=== PATIENT | female | born 1980 | race Caucasian/White ===

== ENCOUNTER 2017-01-12 11:54 | Emergency (ER) | payer OTHER ==
[2017-01-12 12:02] VITALS: BP 114/63; BMI 28.8
--- NOTE | 2017-01-12 13:10 | DR.GENAD ---
HPI - PCP Primary Care Physician: SKINNY WALDROP - HPI Comment HPI Comment: PATIENT IS DIZZY. SYMTOMS STARTED SEVERAL MONTHS AGO BUT IS GETTING WORSE. NO FEVER. DENIES CALF PAINOR TENDERNESS. - Complaint/Symptoms Chief Complaint Doctors Comments: CHEST TIGHTNESS, LOW BACK PAIN, SOB THAT IS GETTING WORSE. Chief Complaint:: PT C/O TINGLING TO HER EXT'S, SOB, DIZZY FOR 6-8 MONTHS ,, PT KOREY IS MIGHT BE SIATICA AND SHE IS SEEING AN MD FOR THIS AND SHE WANTS TO MAKE SURE IT'S NOT HER HEART". Self Treatment fo Chief Complaint: PT C/O CHEST TIGHTNESS.. - Nurses notes reviewed Nurses Notes Review: Yes - Source History Provided: Patient - Mode of Arrival Mode of Arrival: Ambulatory - Timing Onset of Chief Complaint: 01/12/17 Came on: Suddenly - Duration Duration: Constant Duration: Days - Severity Severity: Moderate PMH - PMH Past Medical History: No Past Surgical History: Yes Past Surgical History Comment: 2 C-SECTIONS - Family History History of Family Medical Conditions: Yes Family Medical History: Diabetes Mellitus Family Medical History Comment: HTN, CHOLESTEROL, - Social History Does patient currently use any type of tobacco product: No Have you used tobacco products in the last 12 months: No Type of Tobacco Use: None Does any household member use tobacco: No Alcohol Use: Rarely Do you use any recreational Drugs:: No Lives With: Family Lives Where: Home - infectious screening In the last 2 months have you had wt loss of >10#?: YES Have you had fever, night sweats or hemotysis?: No Have you traveled outside the country in the last 6 months?: No Isolation: Standard ROS - Review of Systems Constitutional: Weakness, Fatigue. negative: Chills, Fever Eyes: No Symptoms Reported. negative: Eye Pain, Blurred Vision, Discharge, Photophobia ENTM: No Symptoms Reported. negative: Ear Pain, Nose Discharge, Nose Congestion , Throat Pain Respiratoy: Non-Productive Cough, Short of Breath. negative: Productive Cough, Wheezing, Hemoptysis Cardiovascular: Chest Pain (TIGHTNESS). negative: Edema, Palpitations, Syncope Gastrointestinal/Abdominal: No Symptoms Reported. negative: Abdominal Pain, Diarrhea, Nausea, Vomiting Genitourinary: No Symptoms Reported. negative: Dysuria, Frequency, Hematuria Neurological: Headache, Tingling (EXTREMITIES.), Weakness, Dizziness Musculoskeletal: Muscle Pain Integumentary: No Symptoms Reported Hematologic/Lymphatic: No Symptoms Reported Endocrine: No Symptoms Reported All Other Systems: Reviewed and Negative PE - Vital Signs Vitals: Temperature 97.7 F Pulse Rate 83 Respiratory Rate 18 Blood Pressure 114/63 O2 Sat by Pulse Oximetry 100 - General Limitations: No Limitations General Appearance: Alert - Head Head Exam: Atraumatic - Eyes Eye exam: Normal Appearance - ENT ENT Exam: Normal External Ear Exam External Ear Exam: Normal External Inspection TM/Canal Exam: Bilateral Normal Nose Exam: Normal Nose Exam Mouth Exam: Normal Inspection Throat Exam: Normal Inspection - Neck Neck Exam: Trachea Midline - Chest Chest Inspection: Symmetric Chest Wall Rise - Respiratory Respiratory Exam: Normal Lung Sounds Bilat Respiratory Exam: Bilateral Rhonchi, Lower Rhonchi - Cardiovascular Cardiovascular Exam: Regular Rate, Normal Rhythm, Normal Heart Sounds - Abdominal Exam Abdominal Exam: Normal Bowel Sounds, Soft. negative: Tenderness - Extremities Extremities Exam: Normal Inspection - Back Back Exam: Paraspinal Tenderness - Neurologic Neurological Exam: Alert, Oriented X3 - Psychiatric Psychiatric Exam: Normal Affect, Normal Mood - Skin Skin Exam: Dry MDM - Additional Information Additional Information Obtained From: Family - Differential Diagnosis Differential Diagnosis: CHEST PAIN, PULMONARY EMBOLISM, DIZZINESS Course - Treatment Treatment: SEE ORDERS. - Education/Counseling Education/Counseling: Patient Educated On: Diagnosis, Needs for Follow Up ROR - Labs Reviewed Laboratory Results Reviewed?: Yes Result Diagrams: 01/12/17 13:26 01/12/17 13:26 Laboratory: WBC 10.9 X10^3/uL (3.6-10.0) H 01/12/17 13:26 RBC 5.06 X10^6/uL (3.5-5.4) 01/12/17 13:26 Hgb 12.5 g/dL (12.0-16.0) 01/12/17 13:26 Hct 37.9 % (36.0-47.0) 01/12/17 13:26 MCV 74.9 fL (80.0-100.0) L 01/12/17 13:26 MCH 24.8 pg (27.0-34.0) L 01/12/17 13:26 MCHC 33.1 g/dL (33.0-35.0) 01/12/17 13:26 RDW 17.1 % (11.6-16.5) H 01/12/17 13:26 Plt Count 259 X10^3/uL (150.0-450.0) 01/12/17 13:26 Plt Count Comment Adequate (ADEQUATE) 01/12/17 13:26 MPV 8.3 fL (7.4-11.0) 01/12/17 13:26 Neut % 91.0 % (42.0-75.0) H 01/12/17 13:26 Lymph % 6.0 % (21.0-51.0) L 01/12/17 13:26 [place] % 2.1 % (0.0-13.0) 01/12/17 13:26 Eos % 0.1 % (0.9-2.9) L 01/12/17 13:26 Baso % 0.8 % (0.2-1.0) 01/12/17 13:26 Neut # 9.9 x10^3/uL (2.2-4.8) H 01/12/17 13:26 Lymph # 0.7 X10^3/uL (1.3-2.9) L 01/12/17 13:26 [place] # 0.2 x10^3/uL (0.3-0.8) L 01/12/17 13:26 Eos # 0.0 x10^3/uL (0.0-0.2) 01/12/17 13:26 Baso # 0.1 X10^3/uL (0.0-0.1) 01/12/17 13:26 Absolute Nucleated RBC 0.0 /100WBC 01/12/17 13:26 Total Counted 100 01/12/17 13:26 Neutrophils % (Manual) 85 % (39-76) H 01/12/17 13:26 Band Neutrophils % 2 % (0-10) 01/12/17 13:26 Lymphocytes % (Manual) 11 % (13-43) L 01/12/17 13:26 Monocytes % (Manual) 2 % (4-9) L 01/12/17 13:26 Plt Morphology Comment Normal (NORMAL) 01/12/17 13:26 RBC Morphology Abnormal (NORMAL) A 01/12/17 13:26 Hypochromasia Slight A 01/12/17 13:26 Anisocytosis Slight A 01/12/17 13:26 Microcytosis Slight A 01/12/17 13:26 D-Dimer < 100 ng/mL (0-400) 01/12/17 13:26 Sodium 138 mmol/L (136-145) 01/12/17 13:26 Corrected Sodium TNP 01/12/17 13:26 Potassium 3.7 mmol/L (3.5-5.1) 01/12/17 13:26 Chloride 104 mmol/L (98-107) 01/12/17 13:26 Carbon Dioxide 27.7 mmol/L (21-32) 01/12/17 13:26 BUN 10 mg/dL (7-18) 01/12/17 13:26 Creatinine 0.86 mg/dL (0.55-1.02) 01/12/17 13:26 Est GFR (MDRD) Af Amer > 60 (>60) 01/12/17 13:26 Est GFR (MDRD) Non-Af > 60 (>60) 01/12/17 13:26 Glucose 106 mg/dL (65-99) H 01/12/17 13:26 Calcium 8.9 mg/dL (8.5-10.1) 01/12/17 13:26 Corrected Calcium TNP 01/12/17 13:26 Total Bilirubin 1.10 mg/dL (0.2-1.0) H 01/12/17 13:26 AST 14 Units/L (15-37) L 01/12/17 13:26 ALT 19 Units/L (12-78) 01/12/17 13:26 Alkaline Phosphatase 56 Units/L (46-116) 01/12/17 13:26 Creatine Kinase 65 Units/L (26-192) 01/12/17 13:26 CK-MB (CK-2) < 1.0 ng/mL (0-4.0) 01/12/17 13:26 CK/CKMB % Calc 1.5 % (<4) 01/12/17 13:26 Troponin I < 0.02 ng/mL (0-1.5) 01/12/17 13:26 Total Protein 7.7 g/dL (6.4-8.2) 01/12/17 13:26 Albumin 3.9 g/dL (3.4-5.0) 01/12/17 13:26 Globulin 3.8 g/dL (2.5-4.5) 01/12/17 13:26 Albumin/Globulin Ratio 1.0 Ratio (1.1-2.1) L 01/12/17 13:26 Specimen Type Clean catch urine 01/12/17 14:01 Urine Color Yellow (YELLOW) 01/12/17 14:01 Urine Appearance Hazy (CLEAR) 01/12/17 14:01 Urine pH 8.0 (5.0 - 8.0) 01/12/17 14:01 Ur Specific [place] 1.005 (1.000-1.030) 01/12/17 14:01 Urine Protein Negative (NEGATIVE) 01/12/17 14:01 Urine Glucose (UA) Negative (NEGATIVE) 01/12/17 14:01 Urine Ketones 3+ (NEGATIVE) 01/12/17 14:01 Urine Occult Blood Negative (NEGATIVE) 01/12/17 14:01 Urine Nitrite Negative (NEGATIVE) 01/12/17 14:01 Urine Bilirubin Negative (NEGATIVE) 01/12/17 14:01 Urine Urobilinogen Normal (NORMAL) 01/12/17 14:01 Ur Leukocyte Esterase Negative (NEGATIVE) 01/12/17 14:01 Urine RBC 0-2 /HPF (NEGATIVE) 01/12/17 14:01 Urine WBC 0-2 /HPF (NEGATIVE) 01/12/17 14:01 Ur Squamous Epith Cells Rare /HPF (NEGATIVE) 01/12/17 14:01 Urine Bacteria Trace /HPF (NEGATIVE) 01/12/17 14:01 Ur Culture Indicated? No/not indicated 01/12/17 14:01 - XRAY XRAY Interpreted by: Radiologist XRAY Findings: REPORT DISCUSS WITH PATIENT. - EKG Rhythm: NSR (EKG NOTED.) - Diagnosis Discharge Problem: Musculoskeletal pain, Dizziness Chest pain Qualifiers: Chest pain type: unspecified Qualified Code(s): R07.9 - Chest pain, unspecified Back pain Qualifiers: Back pain location: low back pain Chronicity: acute Back pain laterality: bilateral Sciatica presence: with sciatica Sciatica laterality: sciatica of left side Qualified Code(s): M54.42 - Lumbago with sciatica, left side - Discharge Plan Disposition: 01 HOME, SELF-CARE Condition: Stable Prescriptions: Ibuprofen [MOTRIN TAB 800 MG *] 800 mg PO Q8H PRN #20 tab PRN Reason: Pain/Inflammation Ondansetron HCl [Zofran Tab 4 mg] 4 mg PO Q8H PRN #12 tab PRN Reason: Nausea/Vomiting Ranitidine HCl [ZANTAC TAB 150 MG *] 150 mg PO BID #20 tab Tramadol HCl 50 mg PO TID #15 tablet - Follow ups/Referrals Follow ups/Referrals: SKINNY WALDROP [Primary Care Provider] - 2 days - Instructions Instructions: Musculoskeletal Pain, Back Pain, Adult, [id number], Chest Pain Observation Additional Instructions: RETURN TO ED IF WORSE.
[2017-01-12 13:36] LABS: BASOPHILS # (AUTO) 0.1 X10^3/uL (0.0-0.1); BASOPHILS % (AUTO) 0.8 % (0.2-1.0); EOSINOPHILS % (AUTO) 0.1 % (0.9-2.9); HEMATOCRIT 37.9 % (36.0-47.0); HEMOGLOBIN 12.5 g/dL (12.0-16.0); LYMPHOCYTES # (AUTO) 0.7 X10^3/uL (1.3-2.9); MEAN CORPUSCULAR HEMOGLOBIN 24.8 pg (27.0-34.0); MEAN CORPUSCULAR HGB CONC 33.1 g/dL (33.0-35.0); MEAN CORPUSCULAR VOLUME 74.9 fL (80.0-100.0); MEAN PLATELET VOLUME 8.3 fL (7.4-11.0); MONOCYTES # (AUTO) 0.2 x10^3/uL (0.3-0.8); MONOCYTES % (AUTO) 2.1 % (0.0-13.0); NEUTROPHILS # (AUTO) 9.9 x10^3/uL (2.2-4.8); PLATELET COUNT 259 X10^3/uL (150.0-450.0); RED BLOOD COUNT 5.06 X10^6/uL (3.5-5.4); RED CELL DISTRIBUTION WIDTH 17.1 % (11.6-16.5); WHITE BLOOD COUNT 10.9 X10^3/uL (3.6-10.0)
[2017-01-12 13:53] LABS: BLOOD UREA NITROGEN 10 mg/dL (7-18); CALCIUM 8.9 mg/dL (8.5-10.1); CARBON DIOXIDE 27.7 mmol/L (21-32); CHLORIDE 104 mmol/L (98-107); CREATININE 0.86 mg/dL (0.55-1.02); GLUCOSE 106 mg/dL (65-99); SODIUM 138 mmol/L (136-145); TROPONIN I < 0.02 ng/mL (0-1.5); eGFR BLACK RACES > 60 (>60); eGFR NON BLACK RACES > 60 (>60)
[2017-01-12 13:59] LABS: ALANINE AMINOTRANSFERASE 19 Units/L (12-78); ALBUMIN 3.9 g/dL (3.4-5.0); ALKALINE PHOSPHATASE 56 Units/L (46-116); ASPARTATE AMINO TRANSFERASE 14 Units/L (15-37); CKMB % 1.5 % (<4); CREATINE KINASE 65 Units/L (26-192); CREATINE KINASE MB < 1.0 ng/mL (0-4.0); TOTAL PROTEIN 7.7 g/dL (6.4-8.2)
[2017-01-12 14:11] LABS: BAND NEUTROPHILS % 2 % (0-10)
[2017-01-12 14:12] LABS: HYPOCHROMASIA SLIGHT; MICROCYTOSIS SLIGHT; PLATELET MORPHOLOGY COMMENT NORMAL (NORMAL)
[2017-01-12 14:13] LABS: ANISOCYTOSIS SLIGHT
[2017-01-12 14:14] LABS: BILIRUBIN,URINE NEGATIVE (NEGATIVE); BLOOD/HEMOGLOBIN,URINE NEGATIVE (NEGATIVE); GLUCOSE, URINE NEGATIVE (NEGATIVE); KETONES,URINE 3+ (NEGATIVE); LEUKOCYTE ESTERASE ,URINE NEGATIVE (NEGATIVE); NITRITES,URINE NEGATIVE (NEGATIVE); PROTEIN,URINE NEGATIVE (NEGATIVE); UROBILINOGEN,URINE NORMAL (NORMAL)
[2017-01-12 14:24] LABS: APPEARANCE,URINE HAZY (CLEAR); BACTERIA,URINE TRACE /HPF (NEGATIVE); COLOR,URINE YELLOW (YELLOW); RBC,URINE 0-2 /HPF (NEGATIVE); SQUAMOUS EPITHELIAL CELL,UR RARE /HPF (NEGATIVE)
--- NOTE | 2017-01-12 14:35 | RAD ---
Lumbar spine, three views Indication: Right hip pain Comparison: None Findings: Vertebral body heights and alignment are normal. No acute fracture or subluxation is identi fied. Disk spaces are well-maintained without significant degenerative change. SI joints are normal. Impression: Negative exam. Reported By:
--- NOTE | 2017-01-12 14:47 | RAD ---
Right hip, two views Indication: Right hip pain Comparison: None Findings: No acute fracture or malalignment is identified. Both hip joint spaces appear well maintain ed. However, there is mild prominence of the superior lateral acetabuli with slight over coverage of the bilateral femoral heads, which can be seen with pincer type femoroacetabular impingement. SI join ts and pubic symphysis are normal. Soft tissues are unremarkable. Impression: Slight over coverage of the bilateral femoral heads, which can be seen with pincer type ALE. Correlat ion recommended. Reported By:
== END 2017-01-12 15:53 | disposition home or self-care (01) ==
LOC: ER 12:14
DX: R07.89 Other chest pain (principal); R42 Dizziness and giddiness; M54.42 Lumbago with sciatica, left side; M79.1 Myalgia
CPT/HCPCS: 36415; 72100; 73501; 80053; 81001; 82550; 82553; 84484; 85025; 85378; 93005; 93010; 99283